=== PATIENT | female | born 1955 | race African-American/Black ===

== ENCOUNTER 2018-10-28 08:59 | Observation (INO) ==
[2018-10-28] MEDS ORDERED: MORPHINE 4 MG/1 ML VIAL IV STA (09:46)
[2018-10-28] MEDS ORDERED: ASPIRIN 325 MG TABLET PO STA (09:46)
[2018-10-28] MEDS ORDERED: ALUM/MAG/SIMETH/LIDO VISC 1:1 30 ML BOTTLE PO STA (09:46)
[2018-10-28] MEDS ORDERED: NITROGLYCERIN 2% OINT 1 INCH/GM PACK TOP STA (09:46)
[2018-10-28] MEDS ORDERED: ONDANSETRON 4 MG/2 ML VIAL IV STA (09:46)
[2018-10-28 10:09] LABS: Basophils % 0.4 % (0.0-0.8); Eosinophils # 0.1 10*3/uL (0.0-0.87); Eosinophils % 2.7 % (0.00-10.9); Hematocrit 35.1 VOL% (35.7-47.0); Hemoglobin 10.7 GM/DL (12.0-16.0); Immature Granulocytes % 0.4 %; Immature Granulocytes Absolute 0.02 #; Lymphocytes # 1.3 10*3/uL (1.4-4.0); Lymphocytes % 26.5 % (21.3-54.2); Mean Corpuscular HGB Conc 30.5 GM/DL (32-36); Mean Corpuscular Hemoglobin 27 PG (27-34); Mean Corpuscular Volume 89.1 FL (87-102); Mean Platelet Volume 10.4 FL (9.6-12.0); Monocytes # 0.3 10*3/uL (0.11-0.8); Monocytes % 6.9 % (1.7-12.7); Neutrophils # 3.1 10*3/uL (1.4-7.4); Neutrophils % 63.1 % (38.7-73.9); Platelet Count 261 T/CUMM (130-400); Red Blood Count 3.94 MC/CUMM (3.8-5.5); Red Cell Distribution Width 13.7 % (9.3-17.3); White Blood Count 4.9 T/CUMM (4-12)
[2018-10-28 10:25] LABS: PT Patient Result 10.5 SECS
[2018-10-28 10:35] LABS: Alanine Aminotransferase 26 U/L (13-56); Albumin 3.1 G/DL (3.4-5.0); Alkaline Phosphatase 87 U/L (45-117); Aspartate Amino Transferase 17 U/L (0-37); Bilirubin,Total < 0.39 MG/DL (0.2-1.0); Blood Urea Nitrogen 15 MG/DL (7-18); Glucose 98 MG/DL (74-106); Osmolality,Calculated 283.1 MOS/KG (273-304); Potassium 4.5 MMOL/L (3.5-5.1); Sodium 142 MMOL/L (136-145); Total Protein 6.1 G/DL (6.4-8.3)
[2018-10-28] MEDS ORDERED: MORPHINE 4 MG/1 ML VIAL IV PRN (13:33)
[2018-10-28] MEDS ORDERED: NITROGLYCERIN 2% OINT 1 INCH/GM PACK TOP SCH (13:33)
[2018-10-28] MEDS ORDERED: ACETAMINOPHEN 325 MG TABLET PO PRN (13:33)
[2018-10-28] MEDS ORDERED: ONDANSETRON 4 MG/2 ML VIAL IV PRN (13:33)
[2018-10-28] MEDS: SODIUM CHLORIDE 0.9% 1,000 ML IV SCH (14:42)
[2018-10-28] MEDS: ENOXAPARIN 120 MG/0.8 ML SYRINGE SUBCUT SCH (14:42)
[2018-10-28] MEDS ORDERED: ALUMINUM/MAGNES/SIMETH MAX STR 30 ML UDCUP PO PRN (15:09)
[2018-10-28] MEDS ORDERED: NITROGLYCERIN SL 0.4 MG TABLET SL PRN (15:10)
[2018-10-28] MEDS ORDERED: FUROSEMIDE 40 MG/4 ML VIAL IV ONE (15:13)
[2018-10-28] MEDS: ACETAMINOPHEN 325 MG TABLET PO SCH ×2 (16:20→21:53)
[2018-10-28] MEDS: ENOXAPARIN 40 MG/0.4 ML SYRINGE SUBCUT SCH ×2 (16:21→16:28)
[2018-10-28] MEDS: KETOROLAC 30 MG/1 ML VIAL IV SCH ×2 (16:22→21:57)
[2018-10-28] MEDS: ATORVASTATIN 40 MG TABLET PO SCH (21:52)
[2018-10-28] MEDS: DOCUSATE SODIUM 100 MG CAPSULE PO SCH (21:52)
[2018-10-28] MEDS: CYCLOBENZAPRINE 10 MG TABLET PO PRN (21:53)
[2018-10-29 03:46] LABS: Basophils % 0.6 % (0.0-0.8); Eosinophils # 0.1 10*3/uL (0.0-0.87); Eosinophils % 2.8 % (0.00-10.9); Hematocrit 34.7 VOL% (35.7-47.0); Hemoglobin 10.4 GM/DL (12.0-16.0); Immature Granulocytes % 0.4 %; Immature Granulocytes Absolute 0.02 #; Lymphocytes # 1.6 10*3/uL (1.4-4.0); Lymphocytes % 31.2 % (21.3-54.2); Mean Corpuscular Hemoglobin 27 PG (27-34); Mean Corpuscular Volume 89.4 FL (87-102); Mean Platelet Volume 10.7 FL (9.6-12.0); Monocytes # 0.3 10*3/uL (0.11-0.8); Monocytes % 5.5 % (1.7-12.7); Neutrophils % 59.5 % (38.7-73.9); Platelet Count 265 T/CUMM (130-400); Red Blood Count 3.88 MC/CUMM (3.8-5.5); Red Cell Distribution Width 13.7 % (9.3-17.3); White Blood Count 5.1 T/CUMM (4-12)
[2018-10-29] MEDS: KETOROLAC 30 MG/1 ML VIAL IV SCH ×2 (04:00→09:00)
[2018-10-29 04:07] LABS: Albumin 2.9 G/DL (3.4-5.0); Bilirubin,Total 0.7 MG/DL (0.2-1.0); Calcium 8.8 MG/DL (8.5-10.1); Osmolality,Calculated 281.4 MOS/KG (273-304); Potassium 4.2 MMOL/L (3.5-5.1); Risk Ratio 3.08; Total Protein 6.3 G/DL (6.4-8.3); VLDL CHOLESTEROL 19.4 MG/DL
[2018-10-29] MEDS: LEVOTHYROXINE 112 MCG TABLET PO SCH (06:25)
[2018-10-29] MEDS: ACETAMINOPHEN 325 MG TABLET PO SCH ×2 (08:18→20:52)
[2018-10-29] MEDS: LISINOPRIL 10 MG TABLET PO SCH (08:18)
[2018-10-29] MEDS: DOCUSATE SODIUM 100 MG CAPSULE PO SCH ×2 (08:18→20:52)
[2018-10-29] MEDS: CYCLOBENZAPRINE 10 MG TABLET PO PRN (08:18)
[2018-10-29] MEDS: FUROSEMIDE 40 MG TABLET PO SCH (08:18)
[2018-10-29] MEDS: ASPIRIN EC 81 MG TABLET PO SCH (08:18)
[2018-10-29] MEDS: MULTIVITAMIN (CENTRUM) TABLET PO SCH (08:18)
[2018-10-29] MEDS: PANTOPRAZOLE 40 MG TABLET PO SCH (08:18)
[2018-10-29] MEDS ORDERED: METOPROLOL SUCCINATE XL 25 MG TABLET PO SCH (09:00)
[2018-10-29] MEDS: ENOXAPARIN 40 MG/0.4 ML SYRINGE SUBCUT SCH (14:56)
[2018-10-29] MEDS: SODIUM CHLORIDE 0.9% 1,000 ML IV SCH (19:52)
[2018-10-29] MEDS: ENOXAPARIN 120 MG/0.8 ML SYRINGE SUBCUT SCH (19:52)
[2018-10-29] MEDS: ATORVASTATIN 40 MG TABLET PO SCH (20:52)
[2018-10-30] MEDS: LEVOTHYROXINE 112 MCG TABLET PO SCH (06:15)
[2018-10-30 08:21] VITALS: BP 111/68
[2018-10-30] MEDS: MULTIVITAMIN (CENTRUM) TABLET PO SCH (08:52)
[2018-10-30] MEDS: FUROSEMIDE 40 MG TABLET PO SCH (08:52)
[2018-10-30] MEDS: ACETAMINOPHEN 325 MG TABLET PO SCH (08:52)
[2018-10-30] MEDS: DOCUSATE SODIUM 100 MG CAPSULE PO SCH (08:52)
[2018-10-30] MEDS: PANTOPRAZOLE 40 MG TABLET PO SCH (08:52)
[2018-10-30] MEDS: LISINOPRIL 10 MG TABLET PO SCH (08:52)
[2018-10-30] MEDS: ASPIRIN EC 81 MG TABLET PO SCH (08:52)
[2018-10-30] MEDS: SODIUM CHLORIDE 0.9% 1,000 ML IV SCH (13:34)
[2018-10-30] MEDS: ENOXAPARIN 40 MG/0.4 ML SYRINGE SUBCUT SCH (14:51)
== END 2018-10-30 15:16 | disposition home or self-care (01) ==
LOC: N.EDINP 08:59 → N.ED 08:59 → N.TELES 13:12
PROVIDERS: ADMIT Family Medicine; ATTEND Family Medicine